=== PATIENT | male | born 1965 | race Caucasian/White ===

== ENCOUNTER 2017-10-16 09:13 | Emergency (ER) | payer BC ==
[2017-10-16] MEDS ORDERED: Sodium Chloride 0.9% 10 ML Syringe FLUSH PRN (09:26)
--- NOTE | 2017-10-16 10:28 | CR ---
Chest: Portable view of the chest was obtained. Comparison: No prior exam. Heart size and mediastinum are within normal limits. Lungs are clear. Bony structures are grossly intact. Impression: 1. Nothing acute is appreciated on portable chest x-ray. Diagnostic code #1
[2017-10-16] MEDS ORDERED: Heparin Sodium 5,000 Units/ML Vial IVPUSH ONE (13:16)
--- NOTE | 2017-10-16 13:25 | EDM.PDOC ---
ED HPI GENERAL MEDICAL PROBLEM - General Chief Complaint: Chest Pain Stated Complaint: CHEST PAIN Time Seen by Provider: 10/16/17 09:21 Source of Information: Reports: Patient History Limitations: Reports: No Limitations - History of Present Illness INITIAL COMMENTS - FREE TEXT/NARRATIVE: The patient presents with chest pain. He was at work sitting at his desk when he developed severe heaviness in his chest. It went to both sides of his neck and radiated down both arms. He took 2 aspirins and chewed them. He drove to the hospital and on the way at a stop sign the pain went away. He had no pain when he arrived. He had no shortness of breath, nausea or diaphoresis with the pain. He has GERD but it has never been this bad. He does not smoke. He has a history of hypertension. He just had a doctors appointment and found his cholesterol was a little elevated. His has no family history of heart disease. He has no CAD. Onset: Sudden Duration: Minutes: Location: Reports: Face Quality: Reports: Other (Heaviness) Severity: Severe Improves with: Reports: None Worsens with: Reports: None Context: Reports: Activity (Sitting at his desk) Associated Symptoms: Reports: Chest Pain. Denies: Cough, Fever/Chills, Nausea/ Vomiting, Shortness of Breath Chest Pain Score (Numeric/FACES): 9 - Related Data Allergies Allergy/AdvReac Type Severity Reaction Status Date / Time No Known Allergies Allergy Verified 10/16/17 09:18 Home Meds: Home Meds Esomeprazole Magnesium [Nexium] 40 mg PO DAILY 08/15/16 [History] Losartan Potassium 50 mg PO DAILY 08/15/16 [History] Past Medical History Cardiovascular History: Reports: Hypertension Gastrointestinal History: Reports: GERD - Infectious Disease History Infectious Disease History: Reports: Chicken Pox - Past Surgical History Musculoskeletal Surgical History: Reports: Shoulder Surgery Social & Family History - Tobacco Use Smoking Status *Q: Never Smoker Second Hand Smoke Exposure: No - Caffeine Use Caffeine Use: Reports: Soda - Recreational Drug Use Recreational Drug Use: No - Living Situation & Occupation Living situation: Reports: Occupation: Employed ED ROS GENERAL - Review of Systems Review Of Systems: See Below Constitutional: Reports: No Symptoms HEENT: Reports: No Symptoms Respiratory: Reports: No Symptoms Cardiovascular: Reports: Chest Pain Endocrine: Reports: No Symptoms GI/Abdominal: Reports: No Symptoms : Reports: No Symptoms Musculoskeletal: Reports: No Symptoms Skin: Reports: No Symptoms ED EXAM, GENERAL - Physical Exam Exam: See Below Exam Limited By: No Limitations General Appearance: Alert, No Apparent Distress Ears: Normal External Exam Nose: Normal Inspection Head: Atraumatic, Normocephalic Neck: Normal Inspection Respiratory/Chest: No Respiratory Distress, Lungs Clear, Normal Breath Sounds Cardiovascular: Regular Rate, Rhythm, No Edema, No Murmur GI/Abdominal: Soft, Non-Tender, No Organomegaly, No Mass Back Exam: Normal Inspection Extremities: Normal Inspection Neurological: Alert, Oriented, No Motor/Sensory Deficits EKG INTERPRETATION EKG Date: 10/16/17 Time: 09:21 Rhythm: NSR Rate (Beats/Min): 64 [place]: Normal P-Wave: Present QRS: Normal ST-T: Other (Flipped T-wave in lead III) QT: Normal ME/PQ Interval: 1st degree HB Course - Vital Signs Last Recorded V/S: Last Vital Signs Temp 97.5 F 10/16/17 09:20 Pulse 59 L 10/16/17 09:20 Resp 20 10/16/17 09:20 BP 145/95 H 10/16/17 09:20 Pulse Ox 97 10/16/17 09:20 - Orders/Labs/Meds Orders: Active Orders 24 hr Category Date Time Status Cardiac Monitoring [RC] . DIRECTED Care 10/16/17 09:26 Active EKG Documentation Completion [RC] ASDIRECTED Care 10/16/17 11:56 Active EKG Documentation Completion [RC] STAT Care 10/16/17 09:27 Active Oxygen Therapy [RC] PRN Care 10/16/17 09:26 Active Peripheral IV Care [RC] . DIRECTED Care 10/16/17 09:27 Active CBC W/O DIFF,HEMOGRAM [HEME] MOTH@0700 Lab 10/17/17 07:00 Ordered CBC W/O DIFF,HEMOGRAM [HEME] MOTH@0700 Lab 10/21/17 07:00 Ordered CBC W/O DIFF,HEMOGRAM [HEME] MOTH@0700 Lab 10/24/17 07:00 Ordered CBC W/O DIFF,HEMOGRAM [HEME] MOTH@0700 Lab 10/28/17 07:00 Ordered CBC W/O DIFF,HEMOGRAM [HEME] MOTH@0700 Lab 10/31/17 07:00 Ordered CBC W/O DIFF,HEMOGRAM [HEME] MOTH@0700 Lab 11/04/17 07:00 Ordered Heparin Sodium/D5W [Heparin 25,000 Units in D5W 500 ML] Med 10/16/17 13:30 Active 25,000 units in 500 ml IV TITRATE Nitroglycerin/D5W [Nitroglycerin 25 MG/D5W 250 ML] Med 10/16/17 13:30 Active 25 mg in 250 ml IV TITRATE Sodium Chloride 0.9% [Saline Flush] Med 10/16/17 09:26 Active 10 ml FLUSH ASDIRECTED PRN Peripheral IV Insertion Adult [OM.PC] Stat Oth 10/16/17 09:26 Ordered EKG 12 Lead [EK] Stat Ther 10/16/17 11:55 Ordered Medication Orders Heparin Sodium/Dextrose (Heparin 25,000 Units In D5w 500 Ml) 25,000 units in 500 mls @ 0 mls/hr IV TITRATE SANIYA; 9 UNITS/KG/HR PRN Reason: Protocol Last Admin: 10/16/17 13:25 Dose: 20.8 mls/hr Nitroglycerin/Dextrose (Nitroglycerin 25 Mg/D5w 250 Ml) 25 mg in 250 mls @ 3 mls/hr IV TITRATE SANIYA PRN Reason: Protocol Sodium Chloride (Saline Flush) 10 ml FLUSH ASDIRECTED PRN PRN Reason: Keep Vein Open Last Admin: 10/16/17 09:33 Dose: 10 ml Labs: Laboratory Tests 10/16/17 10/16/17 10/16/17 Range/Units 09:20 09:20 12:25 WBC 6.51 (4.23-9.07) K/mm3 RBC 5.37 (4.63-6.08) M/mm3 Hgb 16.2 (13.7-17.5) gm/L Hct 46.7 (40.1-51.0) % MCV 87.0 (79.0-92.2) fl MCH 30.2 (25.7-32.2) pg MCHC 34.7 (32.2-35.5) g/dl RDW Std Deviation 43.0 (35.1-43.9) fL Plt Count 215 (163-337) K/mm3 MPV 10.3 (9.4-12.3) fl Neut % (Auto) 53.0 (34.0-67.9) % Lymph % (Auto) 34.1 (21.8-53.1) % [place] % (Auto) 9.2 (5.3-12.2) % Eos % (Auto) 2.9 (0.8-7.0) Baso % (Auto) 0.3 (0.1-1.2) % Neut # (Auto) 3.45 (1.78-5.38) K/mm3 Lymph # (Auto) 2.22 (1.32-3.57) K/mm3 [place] # (Auto) 0.60 (0.30-0.82) K/mm3 Eos # (Auto) 0.19 (0.04-0.54) K/mm3 Baso # (Auto) 0.02 (0.01-0.08) K/mm3 Sodium 142 (136-145) mEq/L Potassium 3.9 (3.5-5.1) mEq/L Chloride 104 (98-107) mEq/L Carbon Dioxide 29 (21-32) mEq/L Anion Gap 12.9 (5-15) BUN 19 H (7-18) mg/dL Creatinine 1.1 (0.7-1.3) mg/dL Est Cr Clr Drug Dosing 85.24 mL/min Estimated GFR (MDRD) > 60 (>60) mL/min BUN/Creatinine Ratio 17.3 (14-18) Glucose 102 (74-106) mg/dL Calcium 9.5 (8.5-10.1) mg/dL Total Bilirubin 0.5 (0.2-1.0) mg/dL AST 25 (15-37) U/L ALT 60 (16-63) U/L Alkaline Phosphatase 78 (46-116) U/L Troponin I 0.037 0.151 H* (0.00-0.056) ng/mL Total Protein 8.2 (6.4-8.2) g/dl Albumin 4.2 (3.4-5.0) g/dl Globulin 4.0 gm/dL Albumin/Globulin Ratio 1.1 (1-2) Meds: Medications Generic Name Dose Route Start Last Admin Trade Name Freq PRN Reason Stop Dose Admin Heparin Sodium/Dextrose 25,000 units in 500 mls @ 0 mls/hr 10/16/17 13:30 04/27 13:25 Heparin 25,000 Units In D5w 500 Ml IV 20.8 mls/hr TITRATE SANIYA Administration Protocol 9 UNITS/KG/HR Nitroglycerin/Dextrose 25 mg in 250 mls @ 3 mls/hr 10/16/17 13:30 Nitroglycerin 25 Mg/D5w 250 Ml IV TITRATE SANIYA Protocol Sodium Chloride 10 ml 10/16/17 09:26 10/16/17 09:33 Saline Flush FLUSH 10 ml ASDIRECTED PRN Administration Keep Vein Open Discontinued Medications Generic Name Dose Route Start Last Admin Trade Name Mor PRN Reason Stop Dose Admin Heparin Sodium (Porcine) 5,000 units 10/16/17 13:16 10/16/17 13:24 Heparin Sodium IVPUSH 10/16/17 13:17 5,000 units ONETIME ONE Administration Metoprolol Tartrate 25 mg 10/16/17 13:26 Lopressor PO 10/16/17 13:27 ONETIME ONE - Re-Assessments/Exams Free Text/Narrative Re-Assessment/Exam: 10/16/17 13:31 The patient took 2 aspirin before arrival and his pain went away. I ordered an IV saline lock, labs, EKG, CXR. He is pain free on arrival. His EKG shows a NSR with a flipped Twave in lead III. His CXR looks good. His CBC and CMP look good. His troponin is negative. I had him wait for 3 hours in our ER and I did another EKG that showed no changes from prior. His repeat troponin did go up to 0.151. He still has no chest pain. He had a nonSTEMI. I ordered a heparin bolus of 5,000 units and a drip at 1,000 units/hr. I feel he needs to be transferred to [facility]. I called [facility] and talked with Dr Encinas and Dr Young and they accepted the patient. They wanted him on nitro and give him metoprolol 25mg by mouth. I have ordered both of them. He will be going down by ambulance. Departure - Departure Time of Disposition: 13:35 Disposition: DC/Tfer to Acute Hospital 02 Reason for Transfer *Q: Other Condition: Serious Clinical Impression: Non-STEMI (non-ST elevated myocardial infarction) Referrals: Nacho Byrd MD [Primary Care Provider] - Forms: ED Department Discharge - My Orders Last 24 Hours: My Active Orders 10/16/17 09:26 Cardiac Monitoring [RC] . DIRECTED Oxygen Therapy [RC] PRN Sodium Chloride 0.9% [Saline Flush] 10 ml FLUSH ASDIRECTED PRN Peripheral IV Insertion Adult [OM.PC] Stat 10/16/17 09:27 EKG Documentation Completion [RC] STAT Peripheral IV Care [RC] . DIRECTED 10/16/17 11:55 EKG 12 Lead [EK] Stat 10/16/17 11:56 EKG Documentation Completion [RC] ASDIRECTED 10/16/17 13:30 Heparin Sodium/D5W [Heparin 25,000 Units in D5W 500 ML] 25,000 units in 500 ml IV TITRATE Nitroglycerin/D5W [Nitroglycerin 25 MG/D5W 250 ML] 25 mg in 250 ml IV TITRATE 10/17/17 07:00 CBC W/O DIFF,HEMOGRAM [HEME] MOTH@0700 10/21/17 07:00 CBC W/O DIFF,HEMOGRAM [HEME] MOTH@0700 10/24/17 07:00 CBC W/O DIFF,HEMOGRAM [HEME] MOTH@0700 10/28/17 07:00 CBC W/O DIFF,HEMOGRAM [HEME] MOTH@0700 10/31/17 07:00 CBC W/O DIFF,HEMOGRAM [HEME] MOTH@0700 11/04/17 07:00 CBC W/O DIFF,HEMOGRAM [HEME] MOTH@0700 - Assessment/Plan Last 24 Hours: My Active Orders 10/16/17 09:26 Cardiac Monitoring [RC] . DIRECTED Oxygen Therapy [RC] PRN Sodium Chloride 0.9% [Saline Flush] 10 ml FLUSH ASDIRECTED PRN Peripheral IV Insertion Adult [OM.PC] Stat 10/16/17 09:27 EKG Documentation Completion [RC] STAT Peripheral IV Care [RC] . DIRECTED 10/16/17 11:55 EKG 12 Lead [EK] Stat 10/16/17 11:56 EKG Documentation Completion [RC] ASDIRECTED 10/16/17 13:30 Heparin Sodium/D5W [Heparin 25,000 Units in D5W 500 ML] 25,000 units in 500 ml IV TITRATE Nitroglycerin/D5W [Nitroglycerin 25 MG/D5W 250 ML] 25 mg in 250 ml IV TITRATE 10/17/17 07:00 CBC W/O DIFF,HEMOGRAM [HEME] MOTH@69910/21/17 07:00 CBC W/O DIFF,HEMOGRAM [HEME] MOTH@69910/24/17 07:00 CBC W/O DIFF,HEMOGRAM [HEME] MOTH@69910/28/17 07:00 CBC W/O DIFF,HEMOGRAM [HEME] MOTH@69910/31/17 07:00 CBC W/O DIFF,HEMOGRAM [HEME] MOTH@69911/04/17 07:00 CBC W/O DIFF,HEMOGRAM [HEME] MOTH@699
[2017-10-16] MEDS ORDERED: Metoprolol Tartrate 25 MG Tab PO ONE (13:26)
[2017-10-16] MEDS ORDERED: Nitroglycerin/D5W 25 MG/250 ML BOTTLE IV SCH (13:30)
[2017-10-16] MEDS ORDERED: Heparin Sodium/D5W 25,000 UNITS/500 ML BAG IV SCH (13:30)
[2017-10-16] MEDS ORDERED: Nitroglycerin/D5W 25 MG/250 ML BOTTLE ONE (13:34)
[2017-10-16 13:36] VITALS: BP 134/91
== END 2017-10-16 14:00 ==
LOC: JD.ED 09:13
DX: I21.4 Non-ST elevation (NSTEMI) myocardial infarction (principal); I10 Essential (primary) hypertension; Z79.899 Other long term (current) drug therapy
CPT/HCPCS: 36415; 71010; 80053; 84484; 85025; 93005; 96365; 96368; 96374; 99285; A9270; J1644; J7050; 93010

== ENCOUNTER 2018-04-27 02:31 | Emergency (ER) | payer BC ==
[2018-04-27 02:41] VITALS: BP 156/102
--- NOTE | 2018-04-27 03:18 | EDM.PDOC ---
ED HPI GENERAL MEDICAL PROBLEM - General Chief Complaint: ENT Problem Stated Complaint: NOSEBLEED Time Seen by Provider: 04/27/18 02:46 Source of Information: Reports: Patient, Family () History Limitations: Reports: No Limitations - History of Present Illness INITIAL COMMENTS - FREE TEXT/NARRATIVE: The patient states that he developed right epistaxis around 02:00. No trauma to the nose. While the patient is on Plavix, he has not previously had epistaxis. The patient has been pinching his nose and applied an ice pack, with no improvement. The patient's PCP is Dr. Puentes. - Related Data Allergies Allergy/AdvReac Type Severity Reaction Status Date / Time No Known Allergies Allergy Verified 04/27/18 02:40 Home Meds: Home Meds Aspirin [Miner Aspirin] 81 mg PO DAILY 10/23/17 [History] Clopidogrel [Plavix] 75 mg PO DAILY 10/23/17 [History] Metoprolol Tartrate 25 mg PO DAILY 10/23/17 [History] Pantoprazole Sodium [Protonix] 40 mg PO DAILY 10/23/17 [History] Rosuvastatin [Crestor] 20 mg PO MOWEFR 10/23/17 [History] Acetaminophen/HYDROcodone [Raphine 325-5 MG] 1 - 2 tab PO Q6H PRN #20 tablet 04/27 [Rx] Past Medical History HEENT History: Reports: Impaired Vision Other HEENT History: Wears glasses Cardiovascular History: Reports: CAD, High Cholesterol, Hypertension, [place] (2017) Respiratory History: Reports: Sleep Apnea Gastrointestinal History: Reports: GERD Neurological History: Reports: Brain Injury - Infectious Disease History Infectious Disease History: Reports: Chicken Pox - Past Surgical History HEENT Surgical History: Reports: Oral Surgery ([place] teeth extraction) Cardiovascular Surgical History: Reports: Coronary Artery Stent (x 1, 10/17/2018) Musculoskeletal Surgical History: Reports: Shoulder Surgery (right, open) Social & Family History - Tobacco Use Smoking Status *Q: Never Smoker - Caffeine Use Caffeine Use: Reports: Soda - Alcohol Use Alcohol Use History: Yes Alcohol Use Frequency: Socially - Recreational Drug Use Recreational Drug Use: No - Living Situation & Occupation Living situation: Reports: , with Spouse, with Family (3 kids) Occupation: Employed (Construction) ED ROS ENT - Review of Systems Review Of Systems: ROS reveals no pertinent complaints other than HPI. ED EXAM, ENT - Physical Exam Exam: See Below Exam Limited By: No Limitations General Appearance: Alert, WD/WN, No Apparent Distress Eye Exam: Bilateral Eye: Normal Inspection Ears: Normal External Exam, Hearing Grossly Normal Nose: Other (Brisk bleed from right nostril) Mouth/Throat: Normal Inspection Head: Atraumatic, Normocephalic ED ENT PROCEDURES - Epistaxis Procedure Indication: Epistaxis, Uncontrolled Recent anticoagulants/antiplatlets: Yes Uncontrolled HTN: No Recent septal/nasal surgery: No Site of bleeding: Right Nare, Posterior Clearing of clots: Patient Blew Nose Topical Meds: Topical Cocaine Ice pack to area: Yes Posterior packing: Dual Balloon (RapidRhino) Complications: No Course - Vital Signs Last Recorded V/S: Last Vital Signs Temp 36.8 C 04/27/18 02:40 Pulse 80 04/27/18 02:40 Resp 16 04/27/18 02:40 BP 156/102 H 04/27/18 02:40 Pulse Ox 95 04/27/18 02:40 - Orders/Labs/Meds Orders: Active Orders 24 hr Category Date Time Status Acetaminophen/HYDROcodone [Raphine 325-5 MG] Med 04/27/18 03:25 Once 2 tab PO ONETIME ONE Medication Orders Hydrocodone Bitart/Acetaminophen (Raphine 325-5 Mg) 2 tab PO ONETIME ONE Stop: 04/27/18 03:26 Meds: Medications Generic Name Dose Route Start Last Admin Trade Name Freq PRN Reason Stop Dose Admin Hydrocodone Bitart/Acetaminophen 2 tab 04/27/18 03:25 Raphine 325-5 Mg PO 04/27/18 03:26 ONETIME ONE Discontinued Medications Generic Name Dose Route Start Last Admin Trade Name Freq PRN Reason Stop Dose Admin Cocaine HCl 2 ml 04/27/18 02:46 Cocaine Hcl TOP 04/27/18 02:47 ONETIME STA - Re-Assessments/Exams Free Text/Narrative Re-Assessment/Exam: 04/27/18 03:13 Attempts were made to control the bleeding with cotton swabs soaked with cocaine , however, the bleeding is extremely brisk and appears to be arterial, consistent with a posterior bleed. The cocaine had no effect, therefore we proceeded with an anterior/posterior RapidRhino balloon. I will have the patient gargle with warm water to clear any blood from his posterior oropharynx , then reevaluate in about 10 minutes to confirm cessation of bleeding. The patient will then need to follow-up with ENT. 04/27/18 03:25 The A/P balloon was rechecked. There appears to be good hemostasis. No blood seen in the posterior oropharynx. The patient will receive 2 tablets of Raphine here in the ED, and I will discharge him home with a prescription for the same. I would like him to follow-up with Dr. Baker tomorrow, 04/28/2018. I explained to the patient that despite this significant bleed, he needs to continue taking his Plavix and aspirin. Departure - Departure Time of Disposition: 03:26 Disposition: Home, Self-Care 01 Condition: Fair Clinical Impression: Acute posterior epistaxis - Discharge Information Prescriptions: Acetaminophen/HYDROcodone [Raphine 325-5 MG] 1 - 2 tab PO Q6H PRN #20 tablet PRN Reason: Pain (Severe 7-10) Referrals: Nacho Byrd MD [Primary Care Provider] - Neto Baker MD [Ordering Only Provider] - Forms: ED Department Discharge Additional Instructions: You were seen in the emergency room for a right-sided nosebleed. On examination, the bleeding appeared to be a posterior bleed, arterial. This required an anterior/posterior balloon to stop the bleeding. You have been started on the narcotic pain reliever Raphine. Take 1-2 tablets up to every 6 hours, as needed for pain. If you take Raphine, do not drive or operate heavy machinery for 10 hours afterwards. Raphine will likely cause constipation, so consider taking a stool softener. Continue to take your usual medications, including Plavix and aspirin. Follow-up with the ENT Dr. Neto Baker this 04/28/2018, in [place]. Make sure that the person taking the appointment understands that this is a posterior bleed, and that you have an anterior/posterior balloon. If any other problems, please do not hesitate to return to the ER. - My Orders Last 24 Hours: My Active Orders 04/27/18 03:25 Acetaminophen/HYDROcodone [Raphine 325-5 MG] 2 tab PO ONETIME ONE - Assessment/Plan Last 24 Hours: My Active Orders 04/27/18 03:25 Acetaminophen/HYDROcodone [Raphine 325-5 MG] 2 tab PO ONETIME ONE
[2018-04-27] MEDS ORDERED: Acetaminophen/HYDROcodone 325-5 MG Tab PO ONE (03:25)
== END 2018-04-27 03:45 | disposition home or self-care (01) ==
LOC: JD.ED 02:31
DX: R04.0 Epistaxis (principal); I25.2 Old myocardial infarction; I10 Essential (primary) hypertension; Z79.82 Long term (current) use of aspirin; Z79.899 Other long term (current) drug therapy
CPT/HCPCS: 30903; 99283; A9270; 30905

== ENCOUNTER 2018-11-10 15:10 | Emergency (ER) | payer BC ==
[2018-11-10 15:20] VITALS: BP 138/85
--- NOTE | 2018-11-10 15:41 | EDM.PDOC ---
ED HPI GENERAL MEDICAL PROBLEM - General Chief Complaint: ENT Problem Stated Complaint: NOSE BLEED Time Seen by Provider: 11/10/18 15:22 Source of Information: Reports: Patient, RN Notes Reviewed History Limitations: Reports: No Limitations - History of Present Illness INITIAL COMMENTS - FREE TEXT/NARRATIVE: Patient is a 53 year old male who presents to the ED for the evaluation of a left sided nose bleed. This started yesterday around mid-day and hasn't gotten any better. He notes this to be a slower bleed than when he came to ED in April 2018. He is on Plavix. There was no trauma to the nose. He did have a plug of paper towel in his nose in place for around 20 minutes prior to evaluation. - Related Data Allergies Allergy/AdvReac Type Severity Reaction Status Date / Time No Known Allergies Allergy Verified 11/10/18 15:20 Home Meds: Home Meds Clopidogrel [Plavix] 75 mg PO DAILY 10/23/17 [History] Pantoprazole Sodium [Protonix] 40 mg PO DAILY 10/23/17 [History] Rosuvastatin [Crestor] 20 mg PO MOWEFR 10/23/17 [History] Ezetimibe [Zetia] 10 mg PO DAILY 11/10/18 [History] Losartan [Cozaar] 50 mg PO DAILY 11/10/18 [History] Metoprolol Succinate 25 mg PO DAILY 11/10/18 [History] Past Medical History HEENT History: Reports: Impaired Vision Other HEENT History: Wears glasses Cardiovascular History: Reports: CAD, High Cholesterol, Hypertension, [place] (2017) Respiratory History: Reports: Sleep Apnea Gastrointestinal History: Reports: GERD Neurological History: Reports: Brain Injury - Infectious Disease History Infectious Disease History: Reports: Chicken Pox - Past Surgical History HEENT Surgical History: Reports: Oral Surgery ([place] teeth extraction) Cardiovascular Surgical History: Reports: Coronary Artery Stent (x 1, 10/17/2018) Musculoskeletal Surgical History: Reports: Shoulder Surgery (right, open) Social & Family History - Caffeine Use Caffeine Use: Reports: Soda - Living Situation & Occupation Living situation: Reports: , with Spouse, with Family (3 kids) Occupation: Employed (Construction) ED ROS ENT - Review of Systems Review Of Systems: See Below Constitutional: Reports: No Symptoms HEENT: Reports: Nosebleed Respiratory: Reports: No Symptoms Cardiovascular: Reports: No Symptoms Endocrine: Reports: No Symptoms GI/Abdominal: Reports: No Symptoms : Reports: No Symptoms Musculoskeletal: Reports: No Symptoms Skin: Reports: No Symptoms Neurological: Reports: No Symptoms Psychiatric: Reports: No Symptoms Hematologic/Lymphatic: Reports: No Symptoms Immunologic: Reports: No Symptoms ED EXAM, ENT - Physical Exam Exam: See Below Exam Limited By: No Limitations General Appearance: Alert, WD/WN, No Apparent Distress Nose: Normal Inspection, Other (pt states that he can taste blood in back of throat after removal of nasal packing.). No: Nasal Swelling, Nasal Tenderness, Active Bleeding (no obvious anterior bleeding portion.) Mouth/Throat: Normal Inspection, Normal Oropharynx, Normal Teeth Head: Atraumatic, Normocephalic Course - Vital Signs Last Recorded V/S: Last Vital Signs Temp 97.2 F 11/10/18 15:15 Pulse 73 11/10/18 15:15 Resp 16 11/10/18 15:15 BP 138/85 11/10/18 15:15 Pulse Ox 97 11/10/18 15:15 - Re-Assessments/Exams Free Text/Narrative Re-Assessment/Exam: 11/10/18 15:44 Pt presents to the ED for the evaluation of a left sided nose bleed. Upon taking out the packing he had applied, a long (roughly 3-4inch)clot came with the packing. He though initially that the bleeding felt like it had stopped. I cannot visualize any anterior bleed. Will consult Dr. Barrios for help with management. 11/10/18 16:08 Dr. Barrios did cauterize 1 area in pt. anterior nose and will wait for 10 min to see if this helps. Will have RN apply antibiotic ointment to nares for moisturization. 11/10/18 16:36 Pt states that nosebleed has stopped. He will be d/c home with instructions. Departure - Departure Time of Disposition: 16:36 Disposition: Home, Self-Care 01 Condition: Fair Clinical Impression: Nosebleed - Discharge Information *PRESCRIPTION DRUG MONITORING PROGRAM REVIEWED*: No *COPY OF PRESCRIPTION DRUG MONITORING REPORT IN PATIENT SENDY: No Instructions: Nosebleed, Adult Referrals: Nacho Byrd MD [Primary Care Provider] - Forms: ED Department Discharge Additional Instructions: You have been evaluated in the ED for your left sided nosebleed. Please use moisturization to each nare at least twice daily. (ayr saline nasal gel, triple antibiotic ointment, etc.) to help further reduce risk of nosebleed. Please return to ED if your symptoms change or worsen.
== END 2018-11-10 17:31 | disposition home or self-care (01) ==
LOC: JD.ED 15:10
DX: R04.0 Epistaxis (principal); E78.00 Pure hypercholesterolemia, unspecified; I10 Essential (primary) hypertension; I25.2 Old myocardial infarction; Z79.01 Long term (current) use of anticoagulants; Z79.899 Other long term (current) drug therapy
CPT/HCPCS: 30901; 99282; 99283-25

== ENCOUNTER 2020-09-19 16:18 | Emergency (ER) | payer BC ==
--- NOTE | 2020-09-19 17:14 | EDM.PDOC ---
ED HPI GENERAL MEDICAL PROBLEM - General Chief Complaint: Chest Pain Stated Complaint: IRREGULAR HEART BEAT Time Seen by Provider: 09/19/20 16:35 Source of Information: Reports: Patient, RN Notes Reviewed - History of Present Illness INITIAL COMMENTS - FREE TEXT/NARRATIVE: 55 yr old male comes having had discomfort ant chest this past morning about 5 hrs ago that lasted about 1 hr. Discomfort was mild. Pain did not radiate. No recent cough, fever, chills. Hx of CAD with a stent place about 2 yrs ago. On approprite med. Chest Pain Score (Numeric/FACES): 0 - Related Data Allergies Allergy/AdvReac Type Severity Reaction Status Date / Time No Known Allergies Allergy Verified 09/19/20 16:35 Home Meds: Home Meds Pantoprazole Sodium [Protonix] 40 mg PO DAILY 10/23/17 [History] Rosuvastatin [Crestor] 20 mg PO MOWEFR 10/23/17 [History] Ezetimibe [Zetia] 10 mg PO DAILY 11/10/18 [History] Losartan [Cozaar] 50 mg PO DAILY 11/10/18 [History] Aspirin [Lo-Dose Aspirin EC] 81 mg PO BEDTIME 09/19/20 [History] Past Medical History HEENT History: Reports: Impaired Vision Other HEENT History: Wears glasses Cardiovascular History: Reports: CAD, High Cholesterol, Hypertension, [place], Stents Other Cardiovascular History: 2016 Respiratory History: Reports: Sleep Apnea Other Respiratory History: CPAP Gastrointestinal History: Reports: GERD Neurological History: Reports: Brain Injury - Infectious Disease History Infectious Disease History: Reports: Chicken Pox - Past Surgical History HEENT Surgical History: Reports: Oral Surgery Cardiovascular Surgical History: Reports: Coronary Artery Stent Respiratory Surgical History: Reports: None GI Surgical History: Reports: None Male Surgical History: Reports: None Neurological Surgical History: Reports: None Musculoskeletal Surgical History: Reports: Shoulder Surgery Other Musculoskeletal Surgeries/Procedures:: R shoulder, kept popping out of socket 1980. Social & Family History - Family History Family Medical History: Noncontributory - Tobacco Use Tobacco Use Status *Q: Never Tobacco User - Caffeine Use Caffeine Use: Reports: Coffee - Living Situation & Occupation Living situation: Reports: , with Spouse, with Family (3 kids) Occupation: Employed (Construction) ED ROS GENERAL - Review of Systems Review Of Systems: See Below Constitutional: Denies: Fever, Chills, Diaphoresis HEENT: Reports: No Symptoms Respiratory: Denies: Shortness of Breath, Pleuritic Chest Pain, Cough Cardiovascular: Reports: Chest Pain GI/Abdominal: Denies: Abdominal Pain, Nausea, Vomiting Musculoskeletal: Denies: Neck Pain, Arm Pain, Back Pain Skin: Reports: No Symptoms Neurological: Reports: No Symptoms ED EXAM, GENERAL - Physical Exam Exam: See Below General Appearance: Alert, No Apparent Distress Eye Exam: Bilateral Eye: PERRL Neck: Normal Inspection, Supple Respiratory/Chest: No Respiratory Distress, Lungs Clear, Normal Breath Sounds, Chest Non-Tender. No: Rhonchi, Wheezing Cardiovascular: Regular Rate, Rhythm GI/Abdominal: Soft, Non-Tender Extremities: Normal Inspection, Normal Range of Motion. No: Leg Pain, Increased Warmth, Redness Neurological: Alert, Oriented, No Motor/Sensory Deficits Skin Exam: Warm, Dry, Normal Color #1 Interpretation EKG Date: 09/19/20 Rhythm: NSR Violet: Normal P-Wave: Present QRS: Normal ST-T: Normal Course - Vital Signs Last Recorded V/S: Last Vital Signs Temp 97.3 F 09/19/20 18:15 Pulse 72 09/19/20 18:15 Resp 20 09/19/20 18:15 BP 149/92 H 09/19/20 18:15 Pulse Ox 98 09/19/20 18:15 - Orders/Labs/Meds Orders: Active Orders 24 hr Category Date Time Status Chest 1V Frontal [CR] Stat Exams 09/19/20 16:45 Taken Labs: Laboratory Tests 09/19/20 Range/Units 17:08 Troponin I < 0.017 (0.00-0.056) ng/mL - Re-Assessments/Exams Free Text/Narrative Re-Assessment/Exam: 09/19/20 18:31 Trop, CXR nl, sinus rythm, no ectopy. EKG also did not show acute changes. He has has multiple moderately elevated BP readings, discharge instr. as documented. Departure - Departure Time of Disposition: 18:04 Disposition: Home, Self-Care 01 Condition: Fair Clinical Impression: Atypical chest pain Instructions: Nonspecific Chest Pain, Adult, [id number] Referrals: Nacho Byrd MD [Primary Care Provider] - Forms: ED Department Discharge Additional Instructions: Your heart and lungs have checked out well here in the ED. Many of you BP readings have been somewhat high in the 150-160/90-100 range. They are not panic values but higher than what you want to run on a group home basis. Check your BP once or twice daily at home under more normal conditions. If they continue to run high follow up with Dr Puentes or if you continue to have e pisodes of chest discomfort. For now continue current meds as prescribed. Return to ED as needed. Sepsis Event Note (ED) - Evaluation Sepsis Screening Result: No Definite Risk - Focused Exam Vital Signs: Vital Signs Temp Pulse Resp BP Pulse Ox 09/19/20 18:15 97.3 F 72 20 149/92 H 98 09/19/20 16:31 97.4 F 73 18 150/89 H 95 - My Orders Last 24 Hours: My Active Orders 09/19/20 16:45 Chest 1V Frontal [CR] Stat - Assessment/Plan Last 24 Hours: My Active Orders 09/19/20 16:45 Chest 1V Frontal [CR] Stat
[2020-09-19 18:21] VITALS: BP 149/92; PULSE 72
--- NOTE | 2020-09-20 10:37 | CR ---
PROCEDURE INFORMATION: Exam: XR Chest, 1 View Exam date and time: 09/19/2020 4:32 PM Age: 55 years old Clinical indication: Chest pain TECHNIQUE: Imaging protocol: XR of the chest Views: 1 view. COMPARISON: DX Chest 2V 12/28/2019 3:10 PM FINDINGS: Lungs: Unremarkable. No consolidation. Pleural space: Unremarkable. No pleural effusion. No pneumothorax. Heart/Mediastinum: Unremarkable. No cardiomegaly. Bones/joints: Unremarkable. IMPRESSION: No acute findings. Thank you for allowing us to participate in the care of your patient. Dictated and Authenticated by: Dallas Roman DO 09/19/2020 6:00 PM Central Time ([place] & [place]) MARS
== END 2020-09-19 18:15 | disposition home or self-care (01) ==
LOC: JD.ED 16:18
DX: R07.89 Other chest pain (principal); I25.2 Old myocardial infarction; I10 Essential (primary) hypertension; I25.10 Atherosclerotic heart disease of native coronary artery without angina pectoris; K21.9 Gastro-esophageal reflux disease without esophagitis; Z79.899 Other long term (current) drug therapy
CPT/HCPCS: 36415; 71045; 71045-26; 84484; 93005; 93010; 99284; 99285-25

== ENCOUNTER 2021-06-20 07:49 | Day surgery (SDC) | payer BC ==
[~2021-06-20 07:49] MED LIST: Sodium Chloride 0.9% 10 ML Syringe FLUSH PRN
[2021-06-20] MEDS ORDERED: Propofol 200 MG/20 ML SDV ONE ×2 (07:54→09:18)
[2021-06-20] MEDS ORDERED: fentaNYL 100 MCG/2 ML SDV ONE (07:54)
[2021-06-20] MEDS ORDERED: Midazolam 1 MG/ML 2 ML SDV ONE (07:55)
[2021-06-20] MEDS ORDERED: Lidocaine 1% 8 ML ONE (07:55)
--- NOTE | 2021-06-20 08:20 | PCM.PREANE ---
Preanesthetic Assessment - Procedure Proposed Procedure: EGD and Colonoscopy - Anesthesia/Transfusion/Family Hx Anesthesia History: Prior Anesthesia Without Reaction Transfusion History: No Prior Transfusion(s) - Review of Systems General: No Symptoms Pulmonary: No Symptoms, Other (ALFREDO, uses CPAP) Cardiovascular: No Symptoms Gastrointestinal: No Symptoms, Other (GERD) Neurological: No Symptoms Other: Reports: None - Physical Assessment NPO Status Date: 06/19/21 NPO Status Time: 22:00 Vital Signs: Last Vital Signs Temp 97.8 F 06/20/21 08:00 Pulse 71 06/20/21 08:00 Resp 18 06/20/21 08:00 BP 143/102 H 06/20/21 08:00 Pulse Ox 94 L 06/20/21 08:00 Height: 1.83 m ASA Class: 3 Mental Status: Alert & Oriented x3 Airway Class: Mallampati = 4 Dentition: Reports: Normal Dentition Thyro-Mental Finger Breadths: 3 Mouth Opening Finger Breadths: 3 ROM/Head Extension: Limited/Partial (difficulty with neck flexion, easy extension) Lungs: Clear to Auscultation, Normal Respiratory Effort Cardiovascular: Regular Rate, Regular Rhythm - Allergies Allergies/Adverse Reactions: Allergies Allergy/AdvReac Type Severity Reaction Status Date / Time aspirin Allergy Epistaxis Verified 06/19/21 11:41 atorvastatin Allergy Muscle Verified 06/19/21 11:41 Aches - Acknowledgements Anesthesia Type Planned: MAC Pt an Appropriate Candidate for the Planned Anesthesia: Yes Alternatives and Risks of Anesthesia Discussed w Pt/Guardian: Yes Pt/Guardian Understands and Agrees with Anesthesia Plan: Yes PreAnesthesia Questionnaire HEENT History: Reports: Impaired Vision Other HEENT History: Wears glasses Cardiovascular History: Reports: CAD, High Cholesterol, Hypertension, [place], Stents Other Cardiovascular History: NM 2017, angina with exertion, sinoatrial bradycardia Respiratory History: Reports: Sleep Apnea Other Respiratory History: CPAP Gastrointestinal History: Reports: GERD, Hiatal Hernia, Other (See Below) Other Gastrointestinal History: hx. of hematochezia, hemorrhoids, obesity, hiatal hernia Neurological History: Reports: Brain Injury - Infectious Disease History Infectious Disease History: Reports: Chicken Pox - Past Surgical History HEENT Surgical History: Reports: Oral Surgery Cardiovascular Surgical History: Reports: Coronary Artery Stent Other Cardiovascular Surgeries/Procedures: Cardiac cath with stents 2019 Respiratory Surgical History: Reports: None GI Surgical History: Reports: Colonoscopy Male Surgical History: Reports: None Neurological Surgical History: Reports: None Musculoskeletal Surgical History: Reports: Shoulder Surgery Other Musculoskeletal Surgeries/Procedures:: R shoulder, kept popping out of socket 1980. - SUBSTANCE USE Tobacco Use Status *Q: Never Tobacco User Recreational Drug Use History: No - HOME MEDS Home Medications: Home Meds Pantoprazole Sodium [Protonix] 40 mg PO DAILY 10/23/17 [History] Rosuvastatin [Crestor] 20 mg PO MOWEFR 10/23/17 [History] Ezetimibe [Zetia] 10 mg PO DAILY 11/10/18 [History] Aspirin [Lo-Dose Aspirin EC] 81 mg PO BEDTIME 09/19/20 [History] Losartan/Hydrochlorothiazide [Losartan-HCTZ 50-12.5 MG] 1 tab PO DAILY 06/19/21 [History] - CURRENT (IN HOUSE) MEDS Current Meds: Current Medications Sodium Chloride (Sodium Chloride 0.9% 10 Ml Syringe) 10 ml FLUSH ASDIRECTED PRN PRN Reason: Keep Vein Open Discontinued Medications Fentanyl (Fentanyl 100 Mcg/2 Ml Sdv) Confirm Administered Dose 100 mcg .ROUTE .STK-MED ONE Stop: 06/20/21 07:55 Lidocaine HCl (Xylocaine-Mpf 1%) Confirm Administered Dose 8 mls @ as directed .ROUTE .STK-MED ONE Stop: 06/20/21 07:56 Midazolam HCl (Midazolam 1 Mg/Ml 2 Ml Sdv) Confirm Administered Dose 2 mg .ROUTE .STK-MED ONE Stop: 06/20/21 07:56 Propofol (Propofol 200 Mg/20 Ml Sdv) Confirm Administered Dose 400 mg .ROUTE .STK-MED ONE Stop: 06/20/21 07:55
[2021-06-20] MEDS ORDERED: Lidocaine 1%/Sod Bicarbonate in NS 8.4% 1 ML Syringe IDERM PRN (08:58)
[2021-06-20] MEDS ORDERED: Sodium Chloride 0.9% 10 ML Syringe FLUSH PRN (08:58)
[2021-06-20] MEDS ORDERED: Lactated Ringers 1,000 ML IV SCH (09:00)
--- NOTE | 2021-06-20 09:46 | PCM.PRNOTE ---
- Free Text/Narrative Note: Date: 06/20/2021 Procedure: screening colonoscopy and diagnostic esophagogastroduodenoscopy History: last screening colonoscopy 10 years ago with no polyps identified. History of chronic GERD with no evidence of Ac esophagus and last endoscopy years ago. Endoscopist: Michael Barry MD Findings: minor inflamed and nodular appearance at gastric side of pylorus. Appearance of mild distal esophageal inflammation. Bowel prep was excellent. Single subcentimeter broad based polyp removed from transverse colon with hot snare. Internal hemorrhoids. Detailed Report: The patient was taken to the endoscopy suite and placed in left lateral decubitus position. Time out was performed adn monitored anesthesia care was initiated. A bite block was placed and the endoscope was inserted into the mouth. The scope was advnaced to the duodenum with ease. Duodenum appeared normal; a sample biopsy from the bulb was obtained with cold forceps. In the stomach, the antral mucosa near the pylorus had a mildly inflamed nodular appearance. A few biopsies were taken with cold forceps. The remainder of the stomach appeared normal. There was no appreciable hiatal hernia. The scope was withdrawn into the distal esophagus. The Z-line looked normal, and there was perhaps mildly inflamed appearance to distal esophageal mucosa. Biopsies were obtained. The remainder of the esophagus appeared normal. Air was suctioned from the stomach prior to withdrawal of the scope. Next, attention was turned to colonoscopy. The anus appeared normal. No abnormality was noted on digital exam. The colonoscope was inserted and advanced to the cecum with ease. Prep was excellent. The scope was slowly withdrawn and mucosal surfaces carefully inspected. A single benign appearing subcentimeter sessile polyp was identified in the transverse colon and removed with hot snare. No other polyps were identified. There were a few scattered diverticula noted. Minor internal hemorrhoidal disease was noted on retroflexion in the rectum. Air was suctioned from the rectum prior to withdrawal of the scope. The patient tolerated the procedure well.
[2021-06-20 12:09] VITALS: PULSE 60
[2021-06-20 12:11] VITALS: BP 123/89
--- NOTE | 2021-06-20 12:40 | PCM48HPAN ---
Post Anesthesia Note - EVALUATION WITHIN 48HRS OF ANESTHETIC Vital Signs in Normal Range: Yes Patient Participated in Evaluation: Yes Respiratory Function Stable: Yes Airway Patent: Yes Cardiovascular Function Stable: Yes Hydration Status Stable: Yes Pain Control Satisfactory: Yes Nausea and Vomiting Control Satisfactory: Yes Mental Status Recovered: Yes Vital Signs: Last Vital Signs Temp 98.0 F 06/20/21 11:45 Pulse 60 06/20/21 11:45 Resp 16 06/20/21 11:45 BP 123/89 06/20/21 11:45 Pulse Ox 92 L 06/20/21 11:45
== END 2021-06-20 12:08 | disposition home or self-care (01) ==
LOC: JD.SDS 07:49
PROVIDERS: ATTEND Surgery
DX: Z12.11 Encounter for screening for malignant neoplasm of colon (principal); D12.3 Benign neoplasm of transverse colon; K29.50 Unspecified chronic gastritis without bleeding; K31.89 Other diseases of stomach and duodenum; K64.8 Other hemorrhoids; K57.30 Diverticulosis of large intestine without perforation or abscess without bleeding; E78.5 Hyperlipidemia, unspecified; I10 Essential (primary) hypertension; G47.30 Sleep apnea, unspecified; F17.210 Nicotine dependence, cigarettes, uncomplicated; E66.3 Overweight; Z68.38 Body mass index [BMI] 38.0-38.9, adult; Z79.82 Long term (current) use of aspirin; Z79.899 Other long term (current) drug therapy
CPT/HCPCS: 00813; J2250; J2704; J3010; J7120

== ENCOUNTER 2022-12-20 22:47 | Emergency (ER) | payer BC ==
[2022-12-20 23:07] VITALS: BP 142/84; PULSE 86
[2022-12-20] MEDS ORDERED: Ondansetron 4 MG/2 ML SDV IVPUSH ONE (23:36)
[2022-12-20] MEDS ORDERED: Sodium Chloride 0.9% 10 ML Syringe FLUSH PRN (23:36)
[2022-12-20] MEDS ORDERED: HYDROmorphone 0.5 MG/0.5 ML Syringe IVPUSH ONE (23:36)
[2022-12-20] MEDS ORDERED: Sodium Chloride 0.9% 1,000 ML IV SCH (23:45)
[2022-12-21] MEDS ORDERED: Insulin Regular, Human 100 Units/ML 3 ML Vial SUBCUT ONE (00:48)
[2022-12-21] MEDS ORDERED: Iopamidol 612 MG/ML 100 ML Bottle IVPUSH ONE (01:37)
[2022-12-21] MEDS ORDERED: Sodium Chloride 0.9% 1,000 ML ONE (03:08)
[2022-12-21] MEDS ORDERED: Ondansetron 4 MG/2 ML SDV IVPUSH ONE (09:21)
== END 2022-12-21 10:52 | disposition home or self-care (01) ==
LOC: JD.ED 22:47
DX: K80.20 Calculus of gallbladder without cholecystitis without obstruction (principal); R11.2 Nausea with vomiting, unspecified; I25.10 Atherosclerotic heart disease of native coronary artery without angina pectoris; E78.00 Pure hypercholesterolemia, unspecified; I10 Essential (primary) hypertension; K21.9 Gastro-esophageal reflux disease without esophagitis; Z95.5 Presence of coronary angioplasty implant and graft; Z88.8 Allergy status to other drugs, medicaments and biological substances; Z79.899 Other long term (current) drug therapy; Z79.82 Long term (current) use of aspirin
CPT/HCPCS: 36415; 74177; 76705; 80053; 82977; 83690; 84484; 85025; 93005; 96361; 96374; 96375; 96376; 99284; J1170; J1815; J2405; J3490; J7030; Q9967; 93010

== ENCOUNTER 2023-12-23 02:40 | Observation (INO) | payer BC ==
[2023-12-23 03:01] LABS: BASOPHILS PERCENT AUTO 0.4 % (0.0-1.0); EOSINOPHILS ABSOLUTE AUTO 0.1 K/mm3 (0.0-0.4); EOSINOPHILS PERCENT AUTO 1.3 % (0.0-6.0); HEMATOCRIT 49.8 % (42.0-52.0); HEMOGLOBIN 18.1 gm/dl (14.0-18.0); IMMATURE GRAN ABSOLUTE AUTO 0.02 K/mm3 (0.00-0.05); IMMATURE GRAN PERCENT AUTO 0.3 % (0.0-0.4); LYMPHOCYTES ABSOLUTE AUTO 2.8 K/mm3 (1.0-4.8); LYMPHOCYTES PERCENT AUTO 37.4 % (24.0-44.0); MEAN CORPUSCULAR HEMOGLOBIN 31.3 pg (28.0-32.0); MEAN CORPUSCULAR HGB CONC 36.3 g/dl (32.0-36.0); MEAN PLATELET VOLUME 10.6 fl (9.4-12.4); MONOCYTES PERCENT AUTO 13.2 % (0.0-8.0); NEUTROPHILS ABSOLUTE AUTO 3.5 K/mm3 (1.8-7.7); NEUTROPHILS PERCENT AUTO 47.4 % (41.0-71.0); PLATELET COUNT,PLT 218 K/mm3 (150-400); RED BLOOD CELL COUNT 5.79 M/mm3 (4.52-5.90); WHITE BLOOD CELL COUNT,WBC 7.44 K/mm3 (3.9-11.3)
[2023-12-23] MEDS: Sodium Chloride 0.9% 10 ML Syringe FLUSH PRN (03:01)
[2023-12-23 03:25] LABS: A/G RATIO 0.9 (1-2); ALBUMIN 3.9 g/dl (3.4-5.0); ANION GAP 19.9 (5-15); BILIRUBIN TOTAL 0.7 mg/dL (0.2-1.0); BUN/CREATININE RATIO 17.3 (14-18); CALCIUM 8.8 mg/dL (8.5-10.1); CREATININE 1.1 mg/dL (0.7-1.3); EST CRCL DRUG DOSING (CG) 79.36 mL/min; POTASSIUM,K 2.9 mEq/L (3.5-5.1); PROTEIN TOTAL,TP 8.2 g/dl (6.4-8.2)
[2023-12-23 03:46] LABS: CORONAVIRUS COVID-19 NAA NEGATIVE (NEGATIVE); INFLUENZA A NAA NEGATIVE (NEGATIVE); RESPIRATORY SYNCYTIAL VIR NAA NEGATIVE (NEGATIVE)
[2023-12-23] MEDS: Sodium Chloride 0.9% 10 ML Syringe FLUSH ONE (04:21)
[2023-12-23] MEDS: Iopamidol 612 MG/ML 100 ML Bottle IVPUSH ONE (04:21)
[2023-12-23 04:48] LABS: APPEARANCE,URINE CLEAR (Clear); BILIRUBIN,URINE NEGATIVE (Negative); COLOR,URINE YELLOW (Yellow); GLUCOSE,URINE NEGATIVE (Negative); KETONES,URINE TRACE (Negative); LEUKOCYTE ESTERASE,URINE NEGATIVE (Negative); NITRITE,URINE NEGATIVE (Negative); OCCULT BLOOD,URINE NEGATIVE (Negative); PROTEIN,URINE 1+ (Negative)
[2023-12-23 04:54] LABS: BACTERIA,URINE RARE /hpf (FEW); EPITHELIAL CELLS,URINE NOT SEEN /hpf (0-5); HYALINE CASTS,URINE 0-5 /lpf (0-5); MUCUS,URINE FEW /hpf (FEW); RBC,URINE NOT SEEN /hpf (0-5); WBC,URINE 0-5 /hpf (0-5)
[2023-12-23 05:27] LABS: C-REACTIVE PROTEIN 1.9 mg/dL (<1.0); T4 FREE 1.36 ng/dL (0.76-1.46); TSH 3.209 uIU/mL (0.358-3.74)
[2023-12-23] MEDS: Benzocaine 20% Topical Spray UD MUCMEM ONE (05:59)
[2023-12-23] MEDS: Sodium Chloride 0.9% 1,000 ML IV SCH (06:05)
[2023-12-23] MEDS ORDERED: Ondansetron 4 MG/2 ML SDV IV PRN (07:03)
[2023-12-23 07:34] LABS: MAGNESIUM 1.9 mg/dL (1.8-2.4); PHOSPHORUS 3.9 mg/dL (2.6-4.7)
[2023-12-23] MEDS: Losartan 50 MG Tab PO SCH (08:39)
[2023-12-23] MEDS: Pantoprazole 40 MG Tab.CR PO SCH (08:42)
[2023-12-23] MEDS: Hydrochlorothiazide 12.5 MG Cap PO SCH (08:42)
[2023-12-23] MEDS: Enoxaparin 40 MG/0.4 ML Syringe SUBCUT SCH (08:43)
[2023-12-23] MEDS: Potassium Chloride 10 MEQ in Premix Bag 1 BAG IV SCH (08:52)
[2023-12-23] MEDS: Rosuvastatin 10 MG Tab PO SCH (09:57)
[2023-12-23] MEDS: Ketorolac 30 MG/ML SDV IVPUSH PRN (15:01)
[2023-12-23] MEDS: Insulin Lispro 100 Unit/ML 3 ML KwikPen SUBCUT SCH (17:23)
[2023-12-23] MEDS: Aspirin 81 MG Tab.EC PO SCH (21:29)
[2023-12-24 06:42] LABS: BASOPHILS PERCENT AUTO 0.5 % (0.0-1.0); EOSINOPHILS ABSOLUTE AUTO 0.1 K/mm3 (0.0-0.4); EOSINOPHILS PERCENT AUTO 2.1 % (0.0-6.0); IMMATURE GRAN ABSOLUTE AUTO 0.01 K/mm3 (0.00-0.05); IMMATURE GRAN PERCENT AUTO 0.2 % (0.0-0.4); LYMPHOCYTES ABSOLUTE AUTO 2.2 K/mm3 (1.0-4.8); LYMPHOCYTES PERCENT AUTO 35.8 % (24.0-44.0); MEAN CORPUSCULAR HEMOGLOBIN 31.7 pg (28.0-32.0); MEAN CORPUSCULAR HGB CONC 36.8 g/dl (32.0-36.0); MEAN CORPUSCULAR VOLUME 86.1 fl (83.0-99.0); MONOCYTES ABSOLUTE AUTO 0.6 K/mm3 (0.0-0.8); MONOCYTES PERCENT AUTO 10.4 % (0.0-8.0); NEUTROPHILS ABSOLUTE AUTO 3.2 K/mm3 (1.8-7.7); PLATELET COUNT,PLT 173 K/mm3 (150-400); RED BLOOD CELL COUNT 5.11 M/mm3 (4.52-5.90); WHITE BLOOD CELL COUNT,WBC 6.18 K/mm3 (3.9-11.3)
[2023-12-24 06:56] LABS: HEMOGLOBIN 16.2 gm/dl (14.0-18.0)
[2023-12-24 06:59] LABS: ANION GAP 13.9 (5-15); BUN/CREATININE RATIO 12.2 (14-18); CALCIUM 8.3 mg/dL (8.5-10.1); CREATININE 0.9 mg/dL (0.7-1.3); POTASSIUM,K 2.9 mEq/L (3.5-5.1)
[2023-12-24] MEDS: Potassium Chloride 20 MEQ Tab.ER PO ONE (08:54)
[2023-12-24] MEDS: Potassium Chloride 10 MEQ in Premix Bag 1 BAG IV ONE (08:55)
[2023-12-24 13:53] VITALS: BP 141/89; PULSE 62
== END 2023-12-24 13:52 | disposition home or self-care (01) ==
LOC: JD.ED 02:40 → JD.MS 07:06
PROVIDERS: ADMIT Student in an Organized Health Care Education/Training Program; ATTEND Student in an Organized Health Care Education/Training Program
DX: K56.0 Paralytic ileus (principal); R10.9 Unspecified abdominal pain; K80.20 Calculus of gallbladder without cholecystitis without obstruction; E78.00 Pure hypercholesterolemia, unspecified; E66.9 Obesity, unspecified; I10 Essential (primary) hypertension; K21.9 Gastro-esophageal reflux disease without esophagitis; E11.9 Type 2 diabetes mellitus without complications; I25.10 Atherosclerotic heart disease of native coronary artery without angina pectoris; Z79.82 Long term (current) use of aspirin; Z79.899 Other long term (current) drug therapy; Z68.36 Body mass index [BMI] 36.0-36.9, adult; Z98.890 Other specified postprocedural states; Z20.822 Contact with and (suspected) exposure to COVID-19; Z88.8 Allergy status to other drugs, medicaments and biological substances
CPT/HCPCS: 0241U; 36415; 43752; 71045; 74018; 74177; 76705; 80048; 80053; 81001; 82947; 83605; 83735; 84100; 84132; 84439; 84443; 85025; 86140; 94660; 96360; 96361; 99285; A9270; J1650; J1885; J3480; J3490; J7030; Q9967; 96365; 96372; 96375; 96376; G0378